=== PATIENT | female | born 2000 | race Caucasian/White ===

== ENCOUNTER → 2021-02-11 | Outpatient (CLI) | payer OTHER ==
--- NOTE | 2021-02-12 16:12 | US ---
EXAMINATION TYPE: Transabdominal DATE OF EXAM: 02/11/2021 4:38 PM COMPARISON: NONE CLINICAL HISTORY: Z36 Confirm Dates. EXAM PERFORMED: EXAM MEASUREMENTS: GESTATIONAL AGE / DATING Physician Established: Not yet established Dates by LMP: (13 weeks/5 days) EDC: 08-14-21 Dates by First Scan: No previous this is first scan Dates by Current Scan for: (12 weeks/4 days) EDC: 08-22-21 MATERNAL ANATOMY Uterus: 9.1 x 6.5 x 7.1cm Right Ovary: obscured by overlying bowel gas Left Ovary: obscured by overlying bowel gas Post CDS / Adnexa: wnl Presence of free fluid: no Presence of subchorionic bleed: no GESTATION / SURVEY CRL: 6.0cm (12 weeks/4 days) Yolk Sac (normal less than 6mm): not visualized Heart Rate: 142 bpm Rhythm: Normal IUP: Viable IUP Date of LMP: 11-07-21 Beta HcG (if available): Not available at this time IMPRESSION: 1. Single intrauterine gestation estimated at 12 weeks 4 days gestation based on crown-rump length. C ardiac activity measures 142 bpm.
== END ==
LOC: MERGE 16:20 → RADUSWWP 16:23
PROVIDERS: ATTEND Obstetrics & Gynecology
DX: Z36.89 Encounter for other specified antenatal screening (principal); Z3A.12 12 weeks gestation of pregnancy
CPT/HCPCS: 76801

== ENCOUNTER 2021-07-30 10:50 | Inpatient (IN) | payer OTHER ==
[2021-07-30] MEDS ORDERED: GENTAMICIN 400 MG in SODIUM CHLORIDE 0.9% 100 ML IVPB ONE (11:08)
[2021-07-30] MEDS ORDERED: CLINDAMYCIN 900 MG in DEXTROSE 5% IN WATER 50 ML IVPB ONE ×2 (11:08)
[2021-07-30] MEDS ORDERED: CITRIC ACID-SODIUM CITRATE 15 ML CUP PO ONE (11:08)
--- NOTE | 2021-07-30 11:25 | P.HPOB ---
History of Present Illness H&P Date: 07/30/21 Chief Complaint: Hypertension and oligohydramnios, breech This patient is a pleasant 21-year-old 1 para 0 female estimated date of confinement 08/21/2021 estimated gestational age 36-6/7 weeks gestation who presented to my office today for a follow-up OB visit. Patient is known breech presentation and had some low normal amniotic fluid last week. Ultrasound today shows persistent breech and severe oligohydramnios (less than 3 cm). Patient also was noted to have 2 elevated blood pressures of 152/92 and 163/105. Patient denies headache or other symptomatology. has otherwise been uncomplicated. Patient did have a positive group B strep culture Review of Systems Genitourinary: Reports Menstruation: Reports amenorrhea Past Medical History Additional Past Surgical History / Comment(s): [place] tooth extraction Past Anesthesia/Blood Transfusion Reactions: No Reported Reaction Past Psychological History: No Psychological Hx Reported Smoking Status: Never smoker Past Alcohol Use History: None Reported Medications and Allergies Home Medications Medication Instructions Recorded Confirmed Type Pnv,Calcium 72/Iron/Folic Acid 1 tablet PO DAILY 07/30/21 History [ Plus Tablet] Allergies Allergy/AdvReac Type Severity Reaction Status Date / Time Penicillins AdvReac Rash/Hives Verified 07/30/21 10:59 Exam Intake and Output 07/29/21 07/30/21 07/30/21 22:59 06:59 14:59 Other: Weight 129.727 kg - OBG Physical Exam Abdomen: bowel sounds normal, no diffuse tenderness, no bruit present, no guarding noted, no hepatomegaly, no splenomegaly, no mass Vulva: both: normal Vagina: normal moisture, no discharge Cervix: no lesion (Cervix is closed in the office), no discharge Uterus: enlarged (Fundal height is 42 cm) Results blood work shows she is O positive, rubella immune, RPR nonreactive, hepatitis B negative, HIV is nonreactive, Glucola was 139 with a normal three- hour gtt., group B strep was positive, ultrasounds of shown normal anatomy, ultrasound done in the office today shows an GENARO of less than 3 Assessment and Plan Assessment: This is a pleasant 21-year-old 1 para 0 female 36-6/7 weeks gestation who is admitted to labor and delivery for delivery secondary to severe oligohydramnios, persistent breech, gestational hypertension. Plan is to check preeclampsia blood work. Due to persistent breech we'll proceed with section for delivery later today because the patient did eat this morning. I did discuss the surgery in detail with the patient and she understands the surgery and risks and risks of infection, bleeding, possible injury to bowel, bladder, vessels, and/or other organs. All the patient's questions are answered and a written consent obtained. (1) 36 to 37 weeks gestation of Current Visit: Yes Status: Acute Code(s): KCL3360 - SNOMED Code(s): 630571341 (2) Gestational hypertension Current Visit: Yes Status: Acute Code(s): O13.9 - GESTATIONAL HTN W/O SIGNIFICANT PROTEINURIA, UNSP TRIMESTER SNOMED Code(s): 01579870 (3) Oligohydramnios Current Visit: Yes Status: Acute Code(s): O41.00X0 - OLIGOHYDRAMNIOS, UNSP TRIMESTER, NOT APPLICABLE OR UNSP SNOMED Code(s): 63265792 (4) Obesity Current Visit: Yes Status: Acute Code(s): E66.9 - OBESITY, UNSPECIFIED SNOMED Code(s): 408554371 (5) Breech presentation Current Visit: Yes Status: Acute Code(s): O32.1XX0 - MATERNAL CARE FOR BREECH PRESENTATION, UNSP SNOMED Code(s): 8013794
[2021-07-30] MEDS: LACTATED RINGERS 1,000 ML IV SCH ×2 (11:41→16:43)
[2021-07-30 11:42] LABS: Basophils # (A) 0.1 k/uL (0-0.2); Basophils % (A) 0 %; Eosinophils # (A) 0.1 k/uL (0-0.7); Eosinophils % (A) 1 %; HCT 36.2 % (34.0-46.0); HGB 12.2 gm/dL (11.4-16.0); Lymphocytes # (A) 1.8 k/uL (1.0-4.8); Lymphocytes % (A) 17 %; MCH 28.7 pg (25.0-35.0); MCHC 33.7 g/dL (31.0-37.0); MCV 85.3 fL (80.0-100.0); Mean Platelet Volume 7.5; Monocytes # (A) 0.4 k/uL (0-1.0); Monocytes % (A) 4 %; Neutrophils # (A) 8.3 k/uL (1.3-7.7); Neutrophils % (A) 77 %; Platelet Count 369 k/uL (150-450); RBC 4.25 m/uL (3.80-5.40); RDW 15.5 % (11.5-15.5); WBC 10.7 k/uL (3.8-10.6)
[2021-07-30 11:53] LABS: ALT 20 U/L (4-34); AST 29 U/L (14-36); African American GFR (CKD) >90 (>60 ml/min/1.73 sqM); Blood Urea Nitrogen 13 mg/dL (7-17); LDH 685 U/L (313-618); Non-African American GFR(CKD) >90 (>60 ml/min/1.73 sqM)
[2021-07-30 11:58] LABS: INR 0.8 (<1.2); Prothrombin Time 9.3 sec (9.0-12.0)
[2021-07-30 11:59] LABS: Partial Thromboplastin Time 22.3 sec (22.0-30.0)
[2021-07-30 12:03] LABS: Appearance,Urine Cloudy (Clear); Bacteria,Urine Rare /hpf; Bilirubin,Urine Negative (Negative); Blood,Urine Negative (Negative); Color,Urine Yellow; Glucose,Urine (UA) Negative (Negative); Hyaline Casts,Urine 1 /lpf (0-2); Ketones,Urine Negative (Negative); Leukocyte Esterase,Urine Large (Negative); Mucus,Urine Few /hpf; Nitrite,Urine Negative (Negative); Protein,Urine 1+ (Negative); RBC,Urine 1 /hpf (0-5); Specific Gravity,Urine 1.027 (1.001-1.035); Squamous Epithelial Cell,Urine 15 /hpf (0-4); Urobilinogen,Urine <2.0 mg/dL (<2.0); WBC,Urine 38 /hpf (0-5)
[2021-07-30 12:12] LABS: Creatinine,Urine Random 234.3 mg/dL; Protein/Creatinine Ratio,Urine 0.051
[2021-07-30] MEDS ORDERED: OXYTOCIN 30 UNITS/500 ML NS BAG IV ONE (16:49)
[2021-07-30] MEDS ORDERED: ONDANSETRON 4 MG/2 ML VIAL ONE (16:49)
[2021-07-30] MEDS ORDERED: NALBUPHINE 10 MG/ML (1 ML AMP) ONE (16:49)
[2021-07-30] MEDS ORDERED: MORPHINE SULFATE (PF) 0.3 MG/0.3 ML SYR ONE (16:49)
[2021-07-30] MEDS ORDERED: KETOROLAC 15 MG/ML 1 ML VIAL ONE (16:49)
[2021-07-30] MEDS ORDERED: fentaNYL (PF) 50 MCG/ML 2 ML AMP ONE (16:49)
[2021-07-30] MEDS ORDERED: ONDANSETRON 4 MG/2 ML VIAL IVP PRN (17:19)
[2021-07-30] MEDS ORDERED: NALOXONE 0.4 MG/ML 1 ML VIAL IV PRN (17:19)
[2021-07-30] MEDS ORDERED: MORPHINE SULFATE 2 MG/ML SYRINGE IVP PRN (17:19)
[2021-07-30] MEDS ORDERED: METOCLOPRAMIDE 5 MG/ML 2 ML VIAL IVP PRN (17:53)
[2021-07-30] MEDS ORDERED: ZOLPIDEM 5 MG TAB PO PRN (17:53)
[2021-07-30] MEDS ORDERED: OXYTOCIN 30 UNITS/500 ML NS 30 UNIT in SALINE 1 500ML.BAG IV SCH (18:00)
--- NOTE | 2021-07-30 18:03 | P.OP ---
Date of Procedure: 07/30/21 Preoperative Diagnosis: #1: 36-6/7 week intrauterine . #2: Persistent breech presentation. #3: Gestational hypertension. #4: Severe oligohydramnios Postoperative Diagnosis: Same Procedure(s) Performed: Primary low transverse section Anesthesia: spinal Surgeon: Sheng Frederick Rfid Strategist #1: Steffi Villalobos Estimated Blood Loss (ml): 500 Pathology: other (Placenta) Condition: stable Disposition: floor Indications for Procedure: Please see dictated H&P for intimate details of this patient's admission. Brief summary this is a pleasant 21-year-old 1 para 0 female 36-6/7 weeks gestation admitted from my office with elevated blood pressure and also severe oligohydramnios and persistent breech presentation. Patient's blood pressures here are fine and her labs are normal however due to the severe oligohydramnios I recommended proceed with delivery. Patient understands this procedure and risks and risks of infection, bleeding, possible injury bowel, bladder, vessels, and/or other organs. All the patient's questions are answered written consent obtained. Operative Findings: This is a vigorous viable male Apgars 9 and 9 delivery time 1709 hrs. was sacrum anterior blayne breech presentation. Grossly appeared normal. Description of Procedure: This patient has a Ricardo catheter placed to straight drain. She is subsequently taken to the operating room where she sat up and spinal anesthetic is administered without incident. With an adequate level of anesthesia she has abdominal prep and drape. Scalpels and taken Pfannenstiel skin incision is then made. Second scalpel is taken down the fascia the fascia scored with a knife. Fascial incision extended bilaterally using the Cruz scissors. Fascia is then dissected off the rectus muscles sharply. Rectus muscles are the peritoneum identified and entered sharply. Peritoneal incision extended superior and inferior without difficulty. Bladder blade is then placed. Bladder peritoneum was taken sharply off the lower uterine segment. Scalpels and taken a low transverse uterine incision is made. Using a hemostat I gently into the uterine cavity bluntly and there is loss of small amount of clear fluid. This incision is extended bluntly. Infant's found to be sacrum anterior blayne breech. With fundal pressure the breech is delivered. Using the usual versus we then have delivery both shoulders and the head. This is a vigorous viable male infant Apgars are 9 and 9 delivery time is 1709 hrs. has spontaneous respiration and good cry and grossly appears normal. After delivery of the infant the umbilical cord is doubly clamped and cut appears to be trivascular. The placenta is then manually extracted intact. The uterus is then externalized and the uterine incision demarcated with Potter clamps. Using 0 Vicryl suture in a running locked fashion 2 layers uterine incision is closed. Excellent hemostasis is noted there is one area that requires additional [id number] sutures. Good hemostasis is noted after this is done. The bladder peritoneum was then reapproximated using a 3-0 Vicryl running fashion. Excess fluid is removed from the abdomen and pelvis. Uterus tubes and ovary appear normal for term gestation. Uterus placed back into the abdomen. The parietal peritoneum was then identified and closed using 0 Vicryl running fashion. Rectus muscles reapproximated in 0 Vicryl interrupted fashion. Fascial incision is then closed using 0 PDS. Fascial incision is intact and hemostatic. Subcutaneous tissues and closed using a 3-0 Vicryl. Skin is and closed using karis. All counts are correct 3. There are no complications. Infant and mother are stable delivery room.
[2021-07-30] MEDS: SENNOSIDES-DOCUSATE SODIUM 1 EACH TAB PO SCH (20:36)
[2021-07-30] MEDS: diphenhydrAMINE 50 MG/ML 1 ML VIAL IVP PRN (20:40)
[2021-07-30] MEDS: KETOROLAC 15 MG/ML 1 ML VIAL IVP SCH (23:36)
[2021-07-31] MEDS: LACTATED RINGERS 1,000 ML IV SCH ×3 (01:43→21:54)
[2021-07-31 06:33] LABS: Basophils % (A) 0 %; Eosinophils # (A) 0.1 k/uL (0-0.7); Eosinophils % (A) 1 %; HCT 30.1 % (34.0-46.0); HGB 10.1 gm/dL (11.4-16.0); Lymphocytes # (A) 1.8 k/uL (1.0-4.8); Lymphocytes % (A) 18 %; MCH 29.6 pg (25.0-35.0); MCHC 33.3 g/dL (31.0-37.0); MCV 88.9 fL (80.0-100.0); Mean Platelet Volume 7.6; Monocytes # (A) 0.5 k/uL (0-1.0); Monocytes % (A) 5 %; Neutrophils # (A) 7.4 k/uL (1.3-7.7); Neutrophils % (A) 74 %; Platelet Count 276 k/uL (150-450); RBC 3.39 m/uL (3.80-5.40); RDW 15.6 % (11.5-15.5)
--- NOTE | 2021-07-31 06:34 | P.PNOBGPC ---
Subjective - Subjective Patient reports: Reports appetite normal, Reports voiding normally, Reports pain well controlled, Reports ambulating normally : doing well Objective - Vital Signs Latest vital signs: Vital Signs Temp Pulse Resp BP Pulse Ox 07/31/21 05:10 15 07/31/21 03:12 98.8 F 72 15 118/73 96 07/31/21 03:10 98.8 F 72 15 118/73 96 07/31/21 00:00 99.5 F 70 15 130/80 96 07/30/21 21:56 15 07/30/21 20:19 15 07/30/21 19:46 97.0 F L 67 15 125/63 99 07/30/21 19:16 97.0 F L 63 15 142/67 100 07/30/21 18:45 55 L 16 126/62 100 07/30/21 18:31 57 L 16 126/59 98 07/30/21 18:19 16 98 07/30/21 18:16 61 16 130/58 98 07/30/21 18:01 59 L 16 129/63 98 07/30/21 17:50 16 98 07/30/21 17:46 97 F L 95 16 129/63 98 07/30/21 10:58 97.7 F 88 16 135/80 Intake and Output 07/30/21 07/30/21 07/31/21 14:59 22:59 06:59 Output Total 175 250 Balance -175 -250 Output: Urine 175 250 Other: Voiding Method Indwelling Catheter # Voids 2 0 # Bowel Movements 0 Weight 129.727 kg - Exam Lungs: bilateral: normal Chest: Normal S1, Normal S2 Extremities: Present: normal Abdomen: Present: normal appearance, soft. Absent: distention, tenderness Incision: Present: normal, dry, intact Uterus: Present: normal, firm - Labs Labs: Abnormal Lab Results - Last 24 Hours (Table) 07/30/21 07/30/21 07/30/21 Range/Units 11:10 11:10 11:10 WBC 10.7 H (3.8-10.6) k/uL RBC (3.80-5.40) m/uL Hgb (11.4-16.0) gm/dL Hct (34.0-46.0) % RDW (11.5-15.5) % Neutrophils # 8.3 H (1.3-7.7) k/uL Lactate Dehydrogenase 685 H (313-618) U/L Urine Appearance Cloudy H (Clear) Urine Protein 1+ H (Negative) Ur Leukocyte Esterase Large H (Negative) Urine WBC 38 H (0-5) /hpf Ur Squamous Epith Cells 15 H (0-4) /hpf Urine Bacteria Rare H (None) /hpf Urine Mucus Few H (None) /hpf 07/31/21 Range/Units 06:02 WBC (3.8-10.6) k/uL RBC 3.39 L (3.80-5.40) m/uL Hgb 10.1 L (11.4-16.0) gm/dL Hct 30.1 L (34.0-46.0) % RDW 15.6 H (11.5-15.5) % Neutrophils # (1.3-7.7) k/uL Lactate Dehydrogenase (313-618) U/L Urine Appearance (Clear) Urine Protein (Negative) Ur Leukocyte Esterase (Negative) Urine WBC (0-5) /hpf Ur Squamous Epith Cells (0-4) /hpf Urine Bacteria (None) /hpf Urine Mucus (None) /hpf Assessment and Plan Assessment: Postoperative day #1. Patient is resting without complaints. Blood pressures are excellent. Vital signs are stable she's afebrile. Uterus is firm nontender and her incision is intact and dry. CBC today was normal. My impression is a normal postoperative course. Plan is to encourage ambulation. Advanced patient's diet, and allow the patient to shower. (1) 36 to 37 weeks gestation of Current Visit: Yes Status: Acute Code(s): SEU9740 - SNOMED Code(s): 918388644 (2) Gestational hypertension Current Visit: Yes Status: Acute Code(s): O13.9 - GESTATIONAL HTN W/O SI GNIFICANT PROTEINURIA, UNSP TRIMESTER SNOMED Code(s): 08771816 (3) Oligohydramnios Current Visit: Yes Status: Acute Code(s): O41.00X0 - OLIGOHYDRAMNIOS, UNSP TRIMESTER, NOT APPLICABLE OR UNSP SNOMED Code(s): 14574846 (4) Obesity Current Visit: Yes Status: Acute Code(s): E66.9 - OBESITY, UNSPECIFIED SNOMED Code(s): 207122534 (5) Breech presentation Current Visit: Yes Status: Acute Code(s): O32.1XX0 - MATERNAL CARE FOR BREECH PRESENTATION, UNSP SNOMED Code(s): 8997689
[2021-07-31] MEDS: KETOROLAC 15 MG/ML 1 ML VIAL IVP SCH ×2 (06:37→13:48)
[2021-07-31] MEDS: diphenhydrAMINE 50 MG/ML 1 ML VIAL IVP PRN (07:20)
--- NOTE | 2021-07-31 09:52 | P.PN ---
Progress Note - Text Progress Note Date: 07/31/21 (796) Anesthesia Postop day 1 Subjective: Status Post section with Duramorph. Patient seen and examined. Doing well without complaint. VAS 6 out of 10. Rest able and tolerable. No nausea or vomiting. Mild pruritus tolerable.. Vital signs stable. Gross lower extremity strength intact. . Without apparent anesthetic complications. Objective: Vital signs reviewed Heart: Regular Rate Lungs: Good chest excursion Abdomen: Appears nondistended Assessment: Status post with Duramorph postop day 1 Plan: Continue current care with your medical management.
[2021-07-31] MEDS: SENNOSIDES-DOCUSATE SODIUM 1 EACH TAB PO SCH ×2 (10:51→21:27)
[2021-07-31] MEDS: ACETAMINOPHEN TAB 500 MG TAB PO PRN ×3 (10:51→22:54)
[2021-07-31] MEDS: IBUPROFEN 600 MG TAB PO PRN ×2 (13:46→21:26)
[2021-08-01] MEDS: IBUPROFEN 600 MG TAB PO PRN ×4 (04:09→23:57)
[2021-08-01] MEDS: ACETAMINOPHEN TAB 500 MG TAB PO PRN ×3 (07:36→20:50)
[2021-08-01] MEDS: SENNOSIDES-DOCUSATE SODIUM 1 EACH TAB PO SCH ×2 (07:37→20:50)
--- NOTE | 2021-08-01 08:22 | P.DS ---
Providers Date of admission: 07/30/21 10:50 Expected date of discharge: 08/01/21 Attending physician: Sheng Frederick Primary care physician: Stated None Hospital Course: Linda is doing very well postop day 2. She is ambulating, voiding and tolerating her diet. She voices no complaints and is requesting discharge home today. Vital signs are stable and afebrile. Heart regular, lungs clear, extremities without pain. Abdomen is soft and uterus is firm. Incision is clean dry and intact but as is not been 48 hours from [facility] will plan to have her return to the office on Wednesday for staple removal all the questions are answered for her at this time she is stable for discharge this time. Prescriptions were already for it to the pharmacy. Patient Condition at Discharge: Good Plan - Discharge Summary Discharge Rx Participant: Yes New Discharge Prescriptions: New oxyCODONE HCL [OxyIR] 5 mg PO Q4HR PRN #18 tab PRN Reason: Pain Ibuprofen [Motrin] 600 mg PO Q6H PRN #30 tab PRN Reason: Pain No Action Pnv,Calcium 72/Iron/Folic Acid [ Plus Tablet] 1 tablet PO DAILY Discharge Medication List Pnv,Calcium 72/Iron/Folic Acid [ Plus Tablet] 1 tablet PO DAILY 07/30/21 [History] Ibuprofen [Motrin] 600 mg PO Q6H PRN #30 tab 07/31/21 [Rx] oxyCODONE HCL [OxyIR] 5 mg PO Q4HR PRN #18 tab 07/31/21 [Rx] Follow up Appointment(s)/Referral(s): Sheng Frederick MD [STAFF PHYSICIAN] - 09/09/21 2:45 pm (08-08-2021 @ 01:30 p.m.) Patient Instructions/Handouts: (DC) Activity/Diet/Wound Care/Special Instructions: No intercourse or anything per vagina for 6 weeks. No heavy lifting or strenuous activity for 6 weeks. Please call if any fever, chills, excessive vaginal bleeding, and/or abdominal pain. Discharge Disposition: HOME SELF-CARE
[2021-08-01] MEDS: KETOROLAC 15 MG/ML 1 ML VIAL IVP SCH (21:41)
[2021-08-02] MEDS: ACETAMINOPHEN TAB 500 MG TAB PO PRN ×2 (03:05→08:48)
[2021-08-02] MEDS: IBUPROFEN 600 MG TAB PO PRN (06:20)
[2021-08-02] MEDS: SENNOSIDES-DOCUSATE SODIUM 1 EACH TAB PO SCH (08:48)
--- NOTE | 2021-08-02 09:02 | P.DS ---
Providers Date of admission: 07/30/21 10:50 Expected date of discharge: 08/02/21 Attending physician: Sheng Frederick Primary care physician: Stated None Hospital Course: Linda is doing very well again today postop day 3. Plan discharged home today. She decided she didn't want home yesterday there are no changes from yesterday's discharge dictation as she is remained completely stable and feeling well. Breast-feeding is slowly improving all the questions are answered for this time she is again stable for discharge. Plan removal of karis prior discharge. Patient Condition at Discharge: Good Plan - Discharge Summary Discharge Rx Participant: Yes New Discharge Prescriptions: New oxyCODONE HCL [OxyIR] 5 mg PO Q4HR PRN #18 tab PRN Reason: Pain Ibuprofen [Motrin] 600 mg PO Q6H PRN #30 tab PRN Reason: Pain No Action Pnv,Calcium 72/Iron/Folic Acid [ Plus Tablet] 1 tablet PO DAILY Discharge Medication List Pnv,Calcium 72/Iron/Folic Acid [ Plus Tablet] 1 tablet PO DAILY 07/30/21 [History] Ibuprofen [Motrin] 600 mg PO Q6H PRN #30 tab 07/31/21 [Rx] oxyCODONE HCL [OxyIR] 5 mg PO Q4HR PRN #18 tab 07/31/21 [Rx] Follow up Appointment(s)/Referral(s): Sheng Frederick MD [STAFF PHYSICIAN] - 3 Days (08-08-2021 @ 01:30 p.m.) Patient Instructions/Handouts: (DC) Activity/Diet/Wound Care/Special Instructions: No intercourse or anything per vagina for 6 weeks. No heavy lifting or strenuous activity for 6 weeks. Please call if any fever, chills, excessive vaginal bleeding, and/or abdominal pain. Discharge Disposition: HOME SELF-CARE
[2021-08-02 09:32] VITALS: BP 124/90; PULSE 88; RESP 18; TEMP 98.1
== END 2021-08-02 10:10 | disposition home or self-care (01) | DRG 788 ==
LOC: 4FBP 10:50
PROVIDERS: ADMIT Obstetrics & Gynecology; ATTEND Obstetrics & Gynecology
PROC: 10D00Z1 Extraction of Products of Conception, Low, Open Approach (ICD-10-PCS; principal; 2021-07-30 17:03)
DX: O41.03X0 Oligohydramnios, third trimester, not applicable or unspecified (principal); E66.9 Obesity, unspecified; O99.214 Obesity complicating childbirth; L29.9 Pruritus, unspecified; O64.1XX0 Obstructed labor due to breech presentation, not applicable or unspecified; O99.73 Diseases of the skin and subcutaneous tissue complicating the puerperium; O13.4 Gestational [pregnancy-induced] hypertension without significant proteinuria, complicating childbirth; Z37.0 Single live birth; Z3A.36 36 weeks gestation of pregnancy
CPT/HCPCS: 81001; 82565; 82570; 83615; 84156; 84450; 84460; 84520; 84550; 85025; 85610; 85730; 86850; 86900; 86901